=== PATIENT | male | born 2000 | race Caucasian/White ===

== ENCOUNTER 2023-07-11 23:10 | Inpatient (IN) ==
[2023-07-11] MEDS ORDERED: SODIUM CHLORIDE 0.9% 1,000 ML IV STA (23:42)
[2023-07-12 00:30] LABS: Influenza A virus by PCR Negative (Neg); Influenza B virus by PCR Negative (Neg); RSV by PCR Negative (Neg); SARS CoV2 RNA(COVID-19) Ceph NEGATIVE (Negative)
[2023-07-12] MEDS ORDERED: ONDANSETRON INJ 2 MG/ML 2 ML VIAL IV STA (00:45)
--- NOTE | 2023-07-12 00:56 | Emergency Department Note ---
Impression & Plan DKA (diabetic ketoacidosis), High anion gap metabolic acidosis, Hypovolemia ED Provider Note CHIEF COMPLAINT: Nausea and vomiting x 1 day HISTORY OF PRESENT ILLNESS: This 23-year-old male patient presents to the emergency department via private vehicle accompanied by friend for evaluation of nausea and vomiting which started earlier today. The patient states he woke not feeling well. He states he had several episodes of vomiting throughout the day. He was seen at [facility] and was given a prescription for Zofran. He states he has taken 2 doses throughout the day without significant improvement or resolution. The patient states that he had an additional episode of vomiting this evening and called his friend to bring him to the emergency department. The patient denies any fever or chills. He denies any recent illness such as cough, congestion, runny nose, sore throat. The patient denies any diarrhea or constipation. He has been unable to keep down any food or fluids throughout the day today. The patient does admit to intermittent marijuana use. He states that he has been feeling nauseated for about a week. He does also note that he started Adderall about 2 to 3 weeks ago. He states that he has not had any vomiting until tonight. Pt. reports a 10 pound weight loss in the past 2-3 days. REVIEW OF SYSTEMS: A 10 system review of systems was performed with positives and pertinent negatives listed in the history of present illness. All other systems were reviewed and are negative. ALLERGIES: NKDA PHYSICAL EXAM: VITALS: Vitals are noted on the nurse's note and reviewed by myself. Patient is tachycardic. Heart rate 144. GENERAL: This is a 23 year old male, in no acute distress, nondiaphoretic, well- developed well-nourished. SKIN: The skin was without rashes, erythema, edema, or bruising. There is no tenting of the skin. Capillary refill less than 2 seconds. HEAD: Normocephalic atraumatic. EYES: Conjunctivae without injection, sclerae without icterus. NOSE: Patent, turbinates without inflammation or discharge. No sinus tenderness. MOUTH: Mucous membranes moist. Tonsils are not enlarged. Pharynx without erythema or exudate. Uvula midline. Airway patent. Tongue does not deviate. NECK: Supple without nuchal rigidity. No lymphadenopathy. Cervical spine is nontender. No JVD. HEART: Regular rate and rhythm without murmurs gallops or rubs. LUNGS: Clear to auscultation bilaterally without wheezes, rales or rhonchi. No retractions or accessory muscle use. ABDOMEN: Positive bowel sounds x 4. Soft, nontender, without masses or organomegaly. Nina sign negative. No guarding or rebound tenderness. MUSCULOSKELETAL: No muscle atrophy, erythema, or edema noted. Full range of motion without joint tenderness in all extremities. No tenderness to palpation. Normal gait. Strength 5/5 throughout. NEURO: Patient was alert and oriented to person place and time. No focal neurological deficits. An order was placed for continuous phototypesetting equipment monitor. The monitor showed a normal sinus rhythm at a ventricular rate of 94 bpm, per my interpretation. EMERGENCY DEPARTMENT COURSE: The patient was seen and evaluated as above. IV access was obtained, labs were drawn. Patient was hydrated with IV fluids and medicated with Zofran. Labs reviewed. Labs are concerning for leukocytosis of 13,000. No anemia or thrombocytopenia. Patient did appear to be acidotic. CO2 was 9. Anion gap was 31. Blood glucose was elevated at 369. Hepatic function without significant abnormality. Lipase 14. Urinalysis positive for protein, glucose, ketones, and blood. COVID-19, influenza, RSV testing were negative. I discussed findings with the patient at bedside. The patient was unaware of a diabetes diagnosis. He denies any history of elevated blood sugar. I am concerned for new onset diabetes with DKA as the cause of the patient's nausea and vomiting. Patient was given additional liter of IV fluids. Additional labs were ordered. I discussed the case with Dr. Varela, [facility] hospitalist physician. He did agree to see and evaluate the patient for admission. Please see hospitalist and ICU dictation regarding ongoing management care of this patient. While in the department, I personally reevaluated the patient several times and each time the patient was found to be resting comfortably. The patient was educated upon management, educated upon todays findings/results, educated upon importance of follow up from today's visit, educated upon symptoms in which to return, had questions answered prior to discharge, verbalized understanding, and was discharged home in good condition. I have personally spent greater than 43minutes of critical care time in the direct management of this patient to assess and manage DKA. This includes bedside care, interpretation of diagnostic studies, and testing, discussion with consultants, patient, and family members, documentation time, and other required patient management activities. This 35 minutes is in excess of all separately billable procedures. Case was discussed with the attending physician. This visit is during a period of high volume and high acuity in the emergency department. I attest that I have personally reviewed the patient medication list. I attest that I have reviewed the patient's blood pressure and it was found to be normotensive. In the evaluation and treatment of this patient the following differential diagnoses were entertained: Gastroenteritis, food borne illness, infections, appendicitis, diverticulitis, inflammatory bowel disease, obstruction, GI bleed, biliary pathology, volvulus, electrolyte abnormality, metabolic abnormality, as well as other pathologies. The chart was completed utilizing [employer] Speech voice recognition software. Grammatical errors, random word insertions, pronoun errors, and incomplete sentences are an occasional consequence of this system due to software limitations, ambient noise, and hardware issues. Any formal questions or concerns about the content, text, or information contained within the body of this dictation should be directly addressed to the provider for clarification. Past Med/Surg History Medical History No pertinent past medical history Social History Smoking Status: Former smoker Do You Dip or Chew Tobacco: No; Hx Alcohol Use: Yes Alcohol type: beer Hx Substance Use: Yes Last Used Substance: Days (ago) Preferred Language: Croatian Communication Ability: Effective Loom Technician Required: No Beliefs That Will Affect Care: None Current Living Situation: Alone Other Information That Helps Us Care for You: No Feels Safe at Home: Yes Safety Concerns: Feels Safe At This Time Assistive Devices: None Allergies Allergies Allergy/AdvReac Type Severity Reaction Status Date / Time amoxicillin AdvReac Unknown Gastrointestinal Verified 07/12/23 02:32 Upset Home Meds Home Medications Medication Instructions Recorded Confirmed dextroamphetamine-amphetamine 10 10 mg PO DAILY 07/12/23 07/12/23 mg tablet (Adderall) fluticasone propionate 50 1 spray intranasal DAILY 07/12/23 07/12/23 mcg/actuation nasal spray,suspension Results & Data (ED) Vital Signs Vital Signs - 24 hr 07/11/23 23:40 07/12/23 02:33 07/12/23 02:36 Temperature 36.7 C Temperature Source Temporal Artery Scan Pulse Rate 144 H 107 H Pulse Rate [Apical] 112 H Respiratory Rate 20 16 Blood Pressure [Right Arm] 126/94 Blood Pressure Mean [Right Arm] 104 Pulse Oximetry 99 98 Oxygen Delivery Method Room Air Room Air Sepsis Recent Fever Within 48 Hours No Sepsis New/Unexplained Change in Mental Status No Sepsis Action Taken by Nursing No Action Required Laboratory Data 07/12/23 01:03 07/12/23 03:34 Lab Results 07/11/23 07/12/23 07/12/23 Range/Units 22:40 01:03 01:20 WBC 13.32 H (4.8-10.8) K/ul RBC 6.05 (4.70-6.10) M/uL Hgb 18.0 (14.0-18.0) g/dl Hct 54.1 H (42.0-52.0) % MCV 89.4 (80.0-100.0) fL MCH 29.8 (25.0-34.0) pg MCHC 33.3 (32.0-36.0) g/dL RDW Std Deviation 43.8 (36.4-46.3) fL RDW Coeff of Kalpana 14.2 (11.5-14.5) % Plt Count 321 (130-400) K/uL MPV 9.8 (9.4-12.4) fL Immature Gran % (Auto) 0.9 % Neut % (Auto) 82.7 % Lymph % (Auto) 9.5 % [place] % (Auto) 6.5 % Eos % (Auto) 0.0 % Baso % (Auto) 0.4 % Neut # (Auto) 11.03 H (1.40-6.50) K/uL Lymph # (Auto) 1.26 (1.20-3.40) K/uL [place] # (Auto) 0.86 H (0.11-0.59) K/uL Eos # (Auto) 0.00 (0.00-0.50) K/uL Baso # (Auto) 0.05 (0.00-0.20) K/uL Immature Gran # (Auto) 0.12 (0.01-0.20) K/uL Sodium 140 (136-145) mmol/L Potassium 4.4 (3.5-5.1) mmol/L Chloride 100 (98-107) mmol/L Carbon Dioxide 9 L* (21-32) mmol/L Anion Gap 31 H (3-11) BUN 12 (6-23) mg/dl Creatinine 1.38 (0.6-1.4) mg/dl Est Cr Clr Drug Dosing 60.8 ml/min Est GFR ( Amer) 84.1 ml/min Est GFR (Non-Af Amer) 72.6 ml/min BUN/Creatinine Ratio 8.7 L (10-20) Glucose 369 H* (70-99(Fasting)) mg/dl POC Glucose (70-99) mg/dl Osmolality 330 H (280-300) mOsm/kg Calcium 10.1 (8.6-10.3) mg/dl Phosphorus 5.8 H (2.5-4.9) mg/dl Magnesium 2.4 (1.7-2.4) mg/dl Total Bilirubin 0.4 (0.2-1.0) mg/dl AST 12 L (13-39) U/L ALT 16 (7-52) U/L Alkaline Phosphatase 134 H (34-104) U/L Total Protein 9.2 H (6.0-8.3) gm/dl Albumin 5.7 H (3.4-5.0) gm/dl Globulin 3.5 (2.5-4.0) gm/dl Albumin/Globulin Ratio 1.6 (0.9-2) Lipase 14 (11-82) U/L Urine Color Yellow Urine Appearance Clear (Clear) Urine pH 5.5 (4.5-7.5) Ur Specific [place] 1.034 H (1.000-1.030) Urine Protein 3+ H (Negative) Urine Glucose (UA) 3+ H (Negative) Urine Ketones 4+ H (Negative) Urine Blood 2+ H (Negative) Urine Nitrite Negative (Negative) Urine Bilirubin Negative (Negative) Urine Urobilinogen Negative (Negative) Ur Leukocyte Esterase Negative (Negative) Urine WBC (Auto) 1-5 (0-5) /hpf Urine RBC (Auto) 0-4 (0-4) /hpf U Hyaline Cast (Auto) 10-30 H (0-5) /lpf U Epithel Cells (Auto) 10-20 H (0-5) /lpf Urine Bacteria (Auto) Negative (Negative) Urine Osmolality 853 H (500-800) mOsm/kg Urine Opiates Screen Neg (Neg) Ur Methadone, Qual Neg (Neg) Urine Barbiturates Neg (Neg) Ur Phencyclidine (PCP) Neg (Neg) U Amphetamin/Meth Scrn Neg (Neg) MDMA (Ecstasy) Screen Neg (Neg) U Benzodiazepines Scrn Neg (Neg) Ur Cocaine Metabolite Neg (Neg) U Marijuana (THC) Screen Pos H (Neg) SARS-CoV-2 (PCR) NEGATIVE (Negative) Influenza Type A (PCR) Negative (Neg) Influenza Type B (PCR) Negative (Neg) RSV (RT-PCR) Negative (Neg) 07/12/23 Range/Units 02:23 WBC (4.8-10.8) K/ul RBC (4.70-6.10) M/uL Hgb (14.0-18.0) g/dl Hct (42.0-52.0) % MCV (80.0-100.0) fL MCH (25.0-34.0) pg MCHC (32.0-36.0) g/dL RDW Std Deviation (36.4-46.3) fL RDW Coeff of Kalpana (11.5-14.5) % Plt Count (130-400) K/uL MPV (9.4-12.4) fL Immature Gran % (Auto) % Neut % (Auto) % Lymph % (Auto) % [place] % (Auto) % Eos % (Auto) % Baso % (Auto) % Neut # (Auto) (1.40-6.50) K/uL Lymph # (Auto) (1.20-3.40) K/uL [place] # (Auto) (0.11-0.59) K/uL Eos # (Auto) (0.00-0.50) K/uL Baso # (Auto) (0.00-0.20) K/uL Immature Gran # (Auto) (0.01-0.20) K/uL Sodium (136-145) mmol/L Potassium (3.5-5.1) mmol/L Chloride (98-107) mmol/L Carbon Dioxide (21-32) mmol/L Anion Gap (3-11) BUN (6-23) mg/dl Creatinine (0.6-1.4) mg/dl Est Cr Clr Drug Dosing ml/min Est GFR ( Amer) ml/min Est GFR (Non-Af Amer) ml/min BUN/Creatinine Ratio (10-20) Glucose (70-99(Fasting)) mg/dl POC Glucose 323 H* (70-99) mg/dl Osmolality (280-300) mOsm/kg Calcium (8.6-10.3) mg/dl Phosphorus (2.5-4.9) mg/dl Magnesium (1.7-2.4) mg/dl Total Bilirubin (0.2-1.0) mg/dl AST (13-39) U/L ALT (7-52) U/L Alkaline Phosphatase (34-104) U/L Total Protein (6.0-8.3) gm/dl Albumin (3.4-5.0) gm/dl Globulin (2.5-4.0) gm/dl Albumin/Globulin Ratio (0.9-2) Lipase (11-82) U/L Urine Color Urine Appearance (Clear) Urine pH (4.5-7.5) Ur Specific [place] (1.000-1.030) Urine Protein (Negative) Urine Glucose (UA) (Negative) Urine Ketones (Negative) Urine Blood (Negative) Urine Nitrite (Negative) Urine Bilirubin (Negative) Urine Urobilinogen (Negative) Ur Leukocyte Esterase (Negative) Urine WBC (Auto) (0-5) /hpf Urine RBC (Auto) (0-4) /hpf U Hyaline Cast (Auto) (0-5) /lpf U Epithel Cells (Auto) (0-5) /lpf Urine Bacteria (Auto) (Negative) Urine Osmolality (500-800) mOsm/kg Urine Opiates Screen (Neg) Ur Methadone, Qual (Neg) Urine Barbiturates (Neg) Ur Phencyclidine (PCP) (Neg) U Amphetamin/Meth Scrn (Neg) MDMA (Ecstasy) Screen (Neg) U Benzodiazepines Scrn (Neg) Ur Cocaine Metabolite (Neg) U Marijuana (THC) Screen (Neg) SARS-CoV-2 (PCR) (Negative) Influenza Type A (PCR) (Neg) Influenza Type B (PCR) (Neg) RSV (RT-PCR) (Neg) Administered Medications Insulin Human Regular 250 (units/ Sodium Chloride) 250 mls @ 1.25 mls/hr IV .Q24H MANDI; Protocol Stop: 08/11/23 02:14 Last Titration: 07/12/23 06:06 Dose: 1.25 units/hr, 1.3 mls/hr Documented By: SOLANGE Co-signed By: MNRenée Titration: 07/12/23 05:00 Dose: 1.25 units/hr, 1.3 mls/hr Documented By: SOLANGE Co-signed By: MNM Titration: 07/12/23 04:25 Dose: 0 units/hr, 0 mls/hr Documented By: SOLANGE Co-signed By: MNM Titration: 07/12/23 03:33 Dose: 5.1 units/hr, 5.1 mls/hr Documented By: MED Co-signed By: SARAH Admin: 07/12/23 02:45 Dose: 5.1 units/hr, 5.1 mls/hr Documented By: BILLIE Co-signed By: JINA Potassium Chloride 20 meq/ (Dextrose/Lactated Ringer's) 1,010 mls @ 175 mls/hr IV .Q5H47M MANDI Stop: 08/11/23 04:29 Last Admin: 07/12/23 04:36 Dose: 175 mls/hr Documented By: SOLANGE Discontinued Medications Sodium Chloride (Nss) 1,000 mls @ 999 mls/hr IV .Q1H1M STA Stop: 07/12/23 00:42 Last Infusion: 07/12/23 02:00 Dose: Infused Documented By: Admin: 07/12/23 00:59 Dose: 999 mls/hr Documented By: LAUREEN Sodium Chloride (Nss) 1,000 mls @ 999 mls/hr IV .Q1H1M ONE Stop: 07/12/23 03:02 Last Infusion: 07/12/23 05:00 Dose: Infused Documented By: Admin: 07/12/23 02:37 Dose: 999 mls/hr Documented By: BILLIE Potassium Chloride/Sodium Chloride (Normal Saline W/20 Meq Kcl) 20 meq in 1,000 mls @ 250 mls/hr IV .Q4H MANDI; Protocol Stop: 08/11/23 03:14 Last Infusion: 07/12/23 04:42 Dose: Infused Documented By: Admin: 07/12/23 03:40 Dose: 250 mls/hr Documented By: YUMIKO Parenteral Electrolytes (Plasma-Lyte A Ph 7.4) 1,000 mls @ 999 mls/hr IV .Q1H1M ONE Stop: 07/12/23 05:09 Last Infusion: 07/12/23 05:23 Dose: Infused Documented By: Admin: 07/12/23 04:19 Dose: 999 mls/hr Documented By: SOLANGE Insulin Human Regular (Novolin-R Bolus From Bag) 5.1 units IV ONE ONE Stop: 07/12/23 02:31 Last Admin: 07/12/23 02:46 Dose: 5.1 units Documented By: BILLIE Co-signed By: JINA Miscellaneous Information (Patient's Allergy Info Needs Entered) 1 each N/A Q30M MANDI Stop: 08/10/23 23:39 Last Admin: 07/12/23 05:53 Dose: Not Given Documented By: Admin: 07/12/23 05:52 Dose: Not Given Documented By: Admin: 07/12/23 05:23 Dose: Not Given Documented By: Admin: 07/12/23 05:00 Dose: Not Given Documented By: Admin: 07/12/23 03:11 Dose: 1 each Documented By: NURIS Ondansetron HCl (Ondansetron Inj 2 Mg/Ml 2 Ml Vial) 4 mg IV NOW STA Stop: 07/12/23 00:46 Last Admin: 07/12/23 00:59 Dose: 4 mg Documented By: LAUREEN Potassium Chloride (Potassium Chloride 20 Meq/15 Ml Udc) 60 meq PO NOW STA Stop: 07/12/23 04:25 Last Admin: 07/12/23 04:36 Dose: 60 meq Documented By: SOLANGE Discharge Plan Visit Data Chief Complaint: Vomiting Stated Complaint: VOMITING/7 TIMES TODAY ED Provider: Triston Serna ED Midlevel Provider: Jossie Dickerson Discharge Problem: DKA (diabetic ketoacidosis), High anion gap metabolic acidosis, Hypovolemia Patient Disposition: Admitted As Inpatient Discharge Instructions Interventions: ED Discharge Assessment Last Done: 07/12/23 03:44
[2023-07-12 01:38] LABS: Basophils # (auto) 0.05 K/uL (0.00-0.20); Basophils % (auto) 0.4 %; Hematocrit (blood only) 54.1 % (42.0-52.0); Immature Granulocytes # (auto) 0.12 K/uL (0.01-0.20); Immature Granulocytes % (auto) 0.9 %; Lymphocytes # (auto) 1.26 K/uL (1.20-3.40); Lymphocytes % (auto) 9.5 %; Mean Corpuscular Hemoglobin 29.8 pg (25.0-34.0); Mean Corpuscular Hgb Conc 33.3 g/dL (32.0-36.0); Mean Corpuscular Volume 89.4 fL (80.0-100.0); Mean Platelet Volume 9.8 fL (9.4-12.4); Monocytes # (auto) 0.86 K/uL (0.11-0.59); Monocytes % (auto) 6.5 %; Neutrophils # (auto) 11.03 K/uL (1.40-6.50); Neutrophils % (auto) 82.7 %; Platelet Count 321 K/uL (130-400); RDW Coefficient of Variation 14.2 % (11.5-14.5); RDW Standard Deviation 43.8 fL (36.4-46.3); Red Blood Count 6.05 M/uL (4.70-6.10); White Blood Count 13.32 K/ul (4.8-10.8)
[2023-07-12 01:39] LABS: Appearance Urine Clear (Clear); Bacteria Urine Automated Negative (Negative); Bilirubin Urine Negative (Negative); Blood Urine 2+ (Negative); Color Urine Yellow; Glucose Urine UA 3+ (Negative); Ketones Urine 4+ (Negative); Leukocyte Esterase Urine Negative (Negative); Nitrite Urine Negative (Negative); Protein Urine 3+ (Negative); RBC Urine Automated 0-4 /hpf (0-4); Specific Gravity Urine 1.034 (1.000-1.030); Urobilinogen Urine Negative (Negative); pH Urine 5.5 (4.5-7.5)
[2023-07-12 01:53] LABS: Albumin Globulin Ratio 1.6 (0.9-2); Albumin Level 5.7 gm/dl (3.4-5.0); BUN Creatinine Ratio 8.7 (10-20); Bilirubin,Total 0.4 mg/dl (0.2-1.0); Calcium 10.1 mg/dl (8.6-10.3); Creatinine Clr Calc Pharmacy 60.8 ml/min; Est GFR (African American) 84.1 ml/min; Est GFR (Non-African American) 72.6 ml/min; Globulin 3.5 gm/dl (2.5-4.0); Potassium 4.4 mmol/L (3.5-5.1); Total Protein 9.2 gm/dl (6.0-8.3)
[2023-07-12] MEDS ORDERED: SODIUM CHLORIDE 0.9% 1,000 ML IV ONE (02:02)
[2023-07-12] MEDS ORDERED: STAT IV Infusion **Titration per Protocol STA (02:11)
[2023-07-12] MEDS ORDERED: GLUCOSE 40% GEL 15 GM TUBE PO PRN (02:11)
[2023-07-12] MEDS ORDERED: GLUCAGON FOR INJ 1 MG VIAL SQ PRN (02:11)
[2023-07-12] MEDS ORDERED: DEXTROSE 50% 50 ML SYRINGE IV PRN (02:11)
[2023-07-12] MEDS ORDERED: GLUCOSE 10 TAB/TUBE PO PRN (02:11)
[2023-07-12] MEDS ORDERED: CARBOHYDRATES FOR HYPOGLYCEMIA PO PRN (02:11)
[2023-07-12] MEDS ORDERED: INSULIN REGULAR 250 UNITS in SODIUM CHLORIDE 0.9% 247.5 ML IV SCH (02:15)
--- NOTE | 2023-07-12 02:28 | History & Physical Report ---
Date of Service July 12, 2023 Assessment & Plan (1) DKA (diabetic ketoacidosis): Plan: Pt is a 23 yo male with no significant PMH presenting to the ER d/t nausea/vomiting and abdominal pain. DKA - hemodynamically stable upon admission except tachycardic - lab work significant for WBC 13.32, bicarb 9, AG 31, blood sugar 369 - UA showed 4+ ketones, 2+ blood, and 3+ glucose - s/p 2L NS bolus in ER; continue fluids with 1/2NS w/ 20 meq K at rate of 250 mL/hr - continue insulin drip upon admission - trend BMP, Mg, phos, VBG q4hr until DKA resolves (gap closes and bicarb >18); transition to subQ insulin when able - further management per ICU New onset type 1 DM - A1c pending - current management as above - pt would benefit from close outpatient f/u with PCP and/or establishment with endocrinology upon discharge - pt's PCP is in [place] and affiliated with [facility] Diet: NPO VTE ppx: deferred, low risk Code: full Dispo: admit to ICU History of Present Illness Chief Complaint: new onset DM, DKA Primary Care Provider: [facility] Pt is a 23 yo male with no significant PMH presenting to the ER d/t nausea/vomiting and abdominal pain. Pt explains that he has been feeling unwell over the last week or so. He has also noticed that his mouth/lips have been very dry, but he attributed this to sleeping with his mouth open. Pt began vomiting this morning. He vomited multiple times throughout the day which led him to seek care at [facility] [[email or web address] He was prescribed zofran PRN for nausea/vomiting and was told to go to the ER if he vomited again. He took a zofran and felt good for about 6 hrs and vomited again which prompted him to come to the ER. His friend notes that he was feeling SOB/breathing funny earlier when he was walking to and from the bathroom. He has no family hx of type 1 DM. His maternal GF had type 2 DM. He did recently start taking adderall PRN. He also uses flonase. No other daily medications. In the ER, pt received 2L NS, zofran 4 mg, and a bolus of insulin. He was started on an insulin drip. Allergies Allergy/AdvReac Type Severity Reaction Status Date / Time amoxicillin AdvReac Unknown Gastrointestinal Verified 07/12/23 02:32 Upset Home Medications Medication Instructions Recorded Confirmed Type blood sugar diagnostic (OneTouch #100 ea 07/12/23 Rx Verio test strips) dextroamphetamine-amphetamine 10 10 mg PO DAILY 07/12/23 07/12/23 History mg tablet (Adderall) fluticasone propionate 50 1 spray intranasal DAILY 07/12/23 07/12/23 History mcg/actuation nasal spray,suspension insulin lispro 100 unit/mL 1 sliding scale dose subcut 07/12/23 Rx subcutaneous pen (Humalog KwikPen USEASDIRECTD #15 mL (U-100) Insulin) lancets 33 gauge (OneTouch Delica #100 ea 07/12/23 Rx Plus Lancet) pen needle, diabetic 32 gauge x #100 ea 07/12/23 Rx /32" (BD Sary 2nd Gen Pen Needle) Past Med/Surg History Medical History No pertinent past medical history Social History Smoking Status: Former smoker Do You Dip or Chew Tobacco: No; Hx Alcohol Use: Yes Alcohol type: beer Hx Substance Use: Yes Last Used Substance: Days (ago) Preferred Language: Mauritanian Communication Ability: Effective Patient Experience Coordinator Required: No Beliefs That Will Affect Care: None Current Living Situation: Alone Other Information That Helps Us Care for You: No Feels Safe at Home: Yes Safety Concerns: Feels Safe At This Time Assistive Devices: None Review of Systems Review of Systems: As per HPI Physical Exam Physical Exam: Constitutional: ill appearing, no acute distress HEENT: normocephalic, no conjunctival injection CV: RRR, no murmur, no LE edema Respiratory: CTA bilaterally. No rhonchi, wheezes, or crackles. No increased work of breathing GI: soft, nondistended, nontender, + bowel sounds MSK: no gross deformities noted Skin: warm, dry, no rashes Neuro: alert, oriented, no FND noted Psych: mood and affect congruent Results & Data Results & Data Vital Signs (Past 12 Hours) Vital Signs Temp Pulse Resp Pulse Ox O2 Del Method 07/11/23 23:40 36.7 C 144 H 20 99 Room Air Supervising Physician Co-Signing Physician Notes Attending addendum: I have physically seen this patient, have supervised the medical residents activities, and agree with the H&P unless as otherwise noted. Assessment and Plan: DKA/new onset diabetes mellitus type 1- Admit to the ICU Anion gap 31, bicarbonate 9, creatinine 1.38, glucose 321 Status post 2 L normal saline in the ED Changing IV fluids per protocol to include adding D5 and potassium Insulin drip per protocol BMP/magnesium/phosphorus/VBG every 4 hours Consult search manager for further management New onset diabetes mellitus type 1- Diabetic education prior to leaving hospital Resident Activity Tracking Resident Involvement: Resident Care Provided Care Provided: Adult Hospital Medicine
[2023-07-12] MEDS ORDERED: NovoLIN-R BOLUS FROM BAG IV ONE (02:30)
[2023-07-12] MEDS ORDERED: ACETAMINOPHEN 325 MG TAB PO PRN (03:01)
[2023-07-12] MEDS ORDERED: MELATONIN 3 MG TAB PO PRN (03:01)
[2023-07-12] MEDS ORDERED: ONDANSETRON INJ 2 MG/ML 2 ML VIAL IV PRN (03:01)
[2023-07-12] MEDS ORDERED: DKA GOAL RANGE 150-250 mg/dl ONE (03:06)
[2023-07-12] MEDS: Patient's ALLERGY Info needs ENTERED SCH ×7 (03:11→13:34)
[2023-07-12] MEDS ORDERED: NSS + 20MEQ KCL 20 MEQ/1,000 ML BAG IV SCH (03:15)
[2023-07-12 03:16] LABS: Magnesium 2.4 mg/dl (1.7-2.4); Phosphorus 5.8 mg/dl (2.5-4.9)
--- NOTE | 2023-07-12 03:19 | Critical Care Consultation ---
Date of Consultation July 12, 2023 Assessment & Plan (1) DKA (diabetic ketoacidosis): (2) Hypovolemia: (3) High anion gap metabolic acidosis: (4) ADD (attention deficit disorder): Plan Reason Critically Ill: Patient presents with High Anion Gap Metabolic Acidosis and elevated glucose. Working Diagnosis of new onset DM with DKA. Neuro - ADD CAM ICU: NEGATVIE - Continue Adderall - Monitor neurological exams Cardiac - Hypovolemia - hypovolemia secondary to likely osmotic diuresis secondary to elevated glucose - Replete volume - Allow pateint to drink water to assist with re-hydration Respiratory - No acute needs - Compensatory tachpnea present- should improve with correction of acid/base disturbance GI - Vomitting - Likely secondary to DKA - denies any other ingestion but occasional marijuana use RENAL/LYTES - High Anion Gap Metabolic Acidosis, DKA - Continue with volume, insulin and electrolyte replacment per protocl - Tox screen pending - serum and urine osmo pending - Has only voided small amount since 1130 AM - No acute needs ENDO - DKA, likely new onset DM - Patient thin, with increase in food intake last week, increase in thirst for a week and urniation- progression to nausea and vomiting for past 2 days - DKA protocol- Add Dextrose to fluids once < 250- D5LR - Replete potassium HEME -Leukocytosis - no obvious signs of infection - likely reactionary and hypovolemic ID - As above no concerns for infective process at this time LINES/IV ACCESS - PIV Continue use of these lines DVT PROPHYLAXIS - SCDs, ambulation DISPO: ICU until gap is closed and HCO3 ~18, and glucose stabilized Supervising Physician Co-Signing Physician Notes I saw and evaluated the patient with ELSA Vyas, and agree with findings and plan as documented in the note. 23-year-old male past medical history of ADD presented to hospital complaint of generalized lethargy Was found to be in DKA Patient's father was in the room at time of examination There is no family history of diabetes on paternal side. One of the aunts on maternal side has diabetes Patient has been having issues with thirst, polyuria since last couple of weeks. He says he is feeling much better since coming to the hospital No abdominal pain right now, no nausea vomiting Is hungry and would like To have something to eat. No dysuria prior to coming to the hospital Constitutional: No acute distress HEENT: EOMI, PERRLA Respiratory system: Good air entry bilaterally, no wheeze, no rhonchi, no crackles CVS: S1-S2 positive, no murmurs or gallops Abdomen: Soft, nontender, nondistended, positive bowel sounds x4 Extremities: +2 pulses bilaterally radialis/ dorsalis pedis, no cyanosis, no edema Neuro: Awake alert oriented x3 Psych: Normal mood and affect G/U: No Renae --Prophylaxis VTE: None GI: None Lines: Peripheral Diet: N.p.o. Plan: In/out: Positive 4 liters since coming to the hospital. Electrolytes are improving. Phosphorus being replaced Will get diabetic education. HbA1c is 11.5. Decrease IV fluid rate to 125 mill an hour. All questions inquiries of the patient as well as patient's father were answered in depth I have personally spent 53 minutes of critical care time in the direct m anagement of this patient. This is a life/limb threatening event. This includes time spent evaluating patient, direct bedside care, chart review, placing orders, interpretation of diagnostic studies, discussion with consultants, patient, and family members, as well as other required patient management activities. This time is exclusive of all separately billable procedures, and teaching time and separate from and in addition to any other critical care service time. Please note the above document was generated using voice recognition software. It may contain grammatical, syntax or spelling errors. Chest x-ray from today does not show any significant abnormality History of Present Illness Reason for Consultation: DKA Requesting Physician: Christopher Varela MD Attending Physician: Christopher Varela MD History of Present Illness 23 YOM with 2 week history of feeling nauseated and 2 day history of vomiting, decrease oral intake. He came to the EMD secondary to vomiting, fatigue and heavy breathing. Was found to be tachycardic on arrival to the 140s. Routine labs were sent which returned with a HCO3 of 9, Gap of 30, Glucose of 369, specific gravity of 1.034 and ketones in urine of 4+. In the EMD the patient received 2 liters of crystalloid, and initiated on an insulin drip at 5 units per hour (0.1unit/kg/hr). Patient states that he has been feeling generally well prior to this, has not had this happen prior and no history of family history of DM. Patient appears to remain very dehydrated, drinking water in between breaths and remains with very dry mucous membranes and tongue. Will admit to ICU for insulin drip, continued monitoring of PH and electrolytes. Will provide crystalloids as well as allowing patient to drink water to assist with rehydration. CODE: FULL Allergies Allergy/AdvReac Type Severity Reaction Status Date / Time amoxicillin AdvReac Unknown Gastrointestinal Verified 07/12/23 02:32 Upset Home Medications Medication Instructions Recorded Confirmed Type dextroamphetamine-amphetamine 10 10 mg PO DAILY 07/12/23 07/12/23 History mg tablet (Adderall) fluticasone propionate 50 1 spray intranasal DAILY 07/12/23 07/12/23 History mcg/actuation nasal spray,suspension Patient History Medical History No pertinent past medical history Social History Smoking Status: Former smoker Do You Dip or Chew Tobacco: No; Hx Alcohol Use: Yes Alcohol type: beer Hx Substance Use: Yes Last Used Substance: Days (ago) Preferred Language: [place] Communication Ability: Effective Quill Cleaner Required: No Beliefs That Will Affect Care: None Current Living Situation: Alone Other Information That Helps Us Care for You: No Feels Safe at Home: Yes Safety Concerns: Feels Safe At This Time Assistive Devices: None Review of Systems Review of Systems: REVIEW OF SYSTEMS: Constitutional: No fever, sweats or chills Eyes: No diplopia, no worsening or blurred vision ENT: normal hearing, no trouble swallowing Respiratory: (+) increase dyspnea, No cough, sputum, dyspnea at rest or on exertion Cardiovascular: No chest pain, tightness or palpitations Abdomen: (+) nausea, vomitting, No diarrhea or constipation Musculoskeletal: No joint pain, calf pain, swelling Neurologic: No weakness, numbness/tingling, or balance problems Psychiatric: (+) ADD and anxiety Skin: No rash or itch Physical Exam Physical Exam: PHYSICAL EXAM: General: awake, alert, fatigued appearing Head: Normocephalic, atraumatic ENT: PERRLA, EOMI, no pharyngeal exudate, mucous membranes dry Neuro: AAO x 3, speech clear and appropriate, strength intact bilaterally 5/5, sensation intact and equal all extremities and dermatomes, no pronator drift Chest: equal rise and fall of the chest, no accessory muscle use, no heaves or thrills, Clear to auscultation, on room air, Cardiac: Regular rate and rhythm, telemetry reviewed- NSR, skin warm dry, cap refill <3 seconds, peripheral pulses +2 no JVD, no murmur, no edema GI: NABS x 4 quadrants, soft, nontender to palpation, no rebound, guarding or tenderness : Spontaneously voiding, no pain, no CVA tenderness, Extremities: Normal inspection, no peripheral edema or erythema, calfs n ontender to palpation Psych: Normal mood and affect Skin: no rash or erythema Results & Data Results & Data Vital Signs (Past 12 Hours) Vital Signs Temp Pulse Pulse Resp BP Pulse Ox O2 Del Method 07/12/23 02:36 107 H 07/12/23 02:33 112 H 16 126/94 98 Room Air 07/11/23 23:40 36.7 C 144 H 20 99 Room Air Laboratory Results Abnormal lab results 07/12/23 07/12/23 07/12/23 Range/Units 01:03 01:20 02:23 WBC 13.32 H (4.8-10.8) K/ul Hct 54.1 H (42.0-52.0) % Neut # (Auto) 11.03 H (1.40-6.50) K/uL [place] # (Auto) 0.86 H (0.11-0.59) K/uL Carbon Dioxide 9 L* (21-32) mmol/L Anion Gap 31 H (3-11) BUN/Creatinine Ratio 8.7 L (10-20) Glucose 369 H* (70-99(Fasting)) mg/dl POC Glucose 323 H* (70-99) mg/dl Phosphorus 5.8 H (2.5-4.9) mg/dl AST 12 L (13-39) U/L Alkaline Phosphatase 134 H (34-104) U/L Total Protein 9.2 H (6.0-8.3) gm/dl Albumin 5.7 H (3.4-5.0) gm/dl Ur Specific [place] 1.034 H (1.000-1.030) Urine Protein 3+ H (Negative) Urine Glucose (UA) 3+ H (Negative) Urine Ketones 4+ H (Negative) Urine Blood 2+ H (Negative) U Hyaline Cast (Auto) 10-30 H (0-5) /lpf U Epithel Cells (Auto) 10-20 H (0-5) /lpf 07/12/23 Range/Units 03:25 WBC (4.8-10.8) K/ul Hct (42.0-52.0) % Neut # (Auto) (1.40-6.50) K/uL [place] # (Auto) (0.11-0.59) K/uL Carbon Dioxide (21-32) mmol/L Anion Gap (3-11) BUN/Creatinine Ratio (10-20) Glucose (70-99(Fasting)) mg/dl POC Glucose 285 H (70-99) mg/dl Phosphorus (2.5-4.9) mg/dl AST (13-39) U/L Alkaline Phosphatase (34-104) U/L Total Protein (6.0-8.3) gm/dl Albumin (3.4-5.0) gm/dl Ur Specific [place] (1.000-1.030) Urine Protein (Negative) Urine Glucose (UA) (Negative) Urine Ketones (Negative) Urine Blood (Negative) U Hyaline Cast (Auto) (0-5) /lpf U Epithel Cells (Auto) (0-5) /lpf Medications Administered Insulin Human Regular 250 (units/ Sodium Chloride) 250 mls @ 5.1 mls/hr IV .Q24H MANDI; Protocol Stop: 08/11/23 02:14 Last Titration: 07/12/23 03:33 Dose: 5.1 units/hr, 5.1 mls/hr Documented By: UNRIS Co-signed By: CHADP Admin: 07/12/23 02:45 Dose: 5.1 units/hr, 5.1 mls/hr Documented By: BILLIE Co-signed By: JINA Potassium Chloride/Sodium Chloride (Normal Saline W/20 Meq Kcl) 20 meq in 1,000 mls @ 250 mls/hr IV .Q4H MANDI; Protocol Stop: 08/11/23 03:14 Last Admin: 07/12/23 03:40 Dose: 250 mls/hr Documented By: SM Discontinued Medications Sodium Chloride (Nss) 1,000 mls @ 999 mls/hr IV .Q1H1M STA Stop: 07/12/23 00:42 Last Infusion: 07/12/23 02:00 Dose: Infused Documented By: Admin: 07/12/23 00:59 Dose: 999 mls/hr Documented By: LAUREEN Sodium Chloride (Nss) 1,000 mls @ 999 mls/hr IV .Q1H1M ONE Stop: 07/12/23 03:02 Last Admin: 07/12/23 02:37 Dose: 999 mls/hr Documented By: BILLIE Insulin Human Regular (Novolin-R Bolus From Bag) 5.1 units IV ONE ONE Stop: 07/12/23 02:31 Last Admin: 07/12/23 02:46 Dose: 5.1 units Documented By: BILLIE Co-signed By: JINA Miscellaneous Information (Patient's Allergy Info Needs Entered) 1 each N/A Q30M MANDI Stop: 08/10/23 23:39 Last Admin: 07/12/23 03:11 Dose: 1 each Documented By: NURIS Ondansetron HCl (Ondansetron Inj 2 Mg/Ml 2 Ml Vial) 4 mg IV NOW STA Stop: 07/12/23 00:46 Last Admin: 07/12/23 00:59 Dose: 4 mg Documented By: LAUREEN Coding Level of Care Code 35049 CRITICAL CARE 30-74M Diagnoses DKA (diabetic ketoacidosis) E11.10 Hypovolemia E86.1 High anion gap metabolic acidosis E87.29 ADD (attention deficit disorder) F98.8
[2023-07-12 03:48] LABS: Base Excess VBG -20.9 mEq/L; HCO3 VBG 7 mmol/L; Oxygen Saturation VBG 70.5 %; PCO2 VBG 23 mmHg (38-50); PO2 VBG 41 mmHg
[2023-07-12] MEDS ORDERED: PLASMA-LYTE A 1,000 ML IV ONE (04:09)
[2023-07-12 04:17] LABS: Amphetamines+Metham, Urine Neg (Neg); Barbiturates, Urine Neg (Neg); Benzodiazepine, Urine Neg (Neg); Cocaine, Urine Neg (Neg); MDMA (Ecstacy), Urine Neg (Neg); Marijuana, Urine Pos (Neg); Methadone, Urine Neg (Neg); Opiate, Urine Neg (Neg); Phencyclidine, Urine Neg (Neg)
[2023-07-12] MEDS ORDERED: PHARMACY GLYCEMIC MGMT CONSULT PRN (04:20)
[2023-07-12 04:21] LABS: BUN Creatinine Ratio 9.5 (10-20); Calcium 8.4 mg/dl (8.6-10.3); Magnesium 2.1 mg/dl (1.7-2.4); Potassium 3.6 mmol/L (3.5-5.1)
[2023-07-12] MEDS ORDERED: POTASSIUM CHLORIDE 20 MEQ/15 ML UDC PO STA (04:24)
[2023-07-12] MEDS: POTASSIUM CHLORIDE 20 MEQ in D5W AND LACTATED RINGERS 1,000 ML IV SCH ×2 (04:36→09:53)
[2023-07-12] MEDS ORDERED: PLASMA-LYTE A 1,000 ML IV SCH (05:15)
[2023-07-12] MEDS ORDERED: PENDING D5 1/2NS+20mEq KCL IVF SCH (06:00)
[2023-07-12] MEDS ORDERED: INSULIN ASPART PER UNIT CHARGE SC SCH (06:00)
[2023-07-12 07:14] LABS: Estimated Average Glucose 283 mg/dl; Hemoglobin A1C 11.5 % (4.5-5.6)
[2023-07-12] MEDS: INSULIN ASPART PER UNIT CHARGE SC SCH ×6 (08:09→23:55)
[2023-07-12 08:43] LABS: BUN Creatinine Ratio 8.5 (10-20); Calcium 8.4 mg/dl (8.6-10.3); Creatinine Clr Calc Pharmacy 103.3 ml/min; Est GFR (African American) 146.5 ml/min; Est GFR (Non-African American) 126.4 ml/min; Magnesium 2.1 mg/dl (1.7-2.4); Phosphorus 1.7 mg/dl (2.5-4.9); Potassium 3.7 mmol/L (3.5-5.1)
[2023-07-12] MEDS ORDERED: POTASSIUM PHOS 3 MMOL/1 ML INFUSION IV STA (08:59)
[2023-07-12] MEDS ORDERED: POTASSIUM PHOSPHATE 21 MMOL in SODIUM CHLORIDE 0.9% 500 ML IV ONE (09:15)
--- NOTE | 2023-07-12 09:26 | XRay Report ---
XR chest 1V portable HISTORY: 23 years-old Male f/u acute shortness of breath COMPARISON: None TECHNIQUE: AP view of the chest FINDINGS: Cardiomediastinal and hilar silhouettes appear normal. Numerous telemetry leads coiled over the left hemithorax. No pneumothorax, pleural effusion or airspace consolidation. Minimal mid thoracic dextros coliosis. The bones appear grossly intact. IMPRESSION: No acute process. ACT 112: Negative or not required by law. The above report was generated using voice recognition software. It may contain grammatical, syntax o r spelling errors. Electronically signed by: Zeus Rausch M.D. 07/12/2023 9:25 AM
[2023-07-12 12:11] LABS: Anion Gap 11 (3-11); BUN Creatinine Ratio 6.6 (10-20); Blood Urea Nitrogen 5 mg/dl (6-23); Calcium 8.3 mg/dl (8.6-10.3); Carbon Dioxide 17 mmol/L (21-32); Chloride 109 mmol/L (98-107); Creatinine Clr Calc Pharmacy 111.5 ml/min; Est GFR (African American) > 150.0 ml/min; Est GFR (Non-African American) 130.4 ml/min; Glucose 268 mg/dl (70-99(Fasting)); Magnesium 1.9 mg/dl (1.7-2.4); Phosphorus 2.4 mg/dl (2.5-4.9); Potassium 3.5 mmol/L (3.5-5.1); Sodium 137 mmol/L (136-145)
[2023-07-12] MEDS ORDERED: LANTUS PER UNIT CHARGE SC ONE (13:00)
--- NOTE | 2023-07-12 13:41 | Pharmacy Report ---
Pharmacy Glycemic Short Note 2 - Date of Service July 12, 2023 - Glycemic Short BSG Results (Last 24 hours): 07/12/23 07/12/23 07/12/23 01:03 02:23 03:25 Glucose 369 H* POC Glucose 323 H* 285 H 07/12/23 07/12/23 07/12/23 03:34 04:27 06:02 Glucose 256 H POC Glucose 206 H 209 H 07/12/23 07/12/23 07/12/23 06:59 07:50 08:01 Glucose 263 H POC Glucose 233 H 241 H 07/12/23 07/12/23 07/12/23 08:58 09:57 11:03 Glucose POC Glucose 272 H 266 H 250 H 07/12/23 07/12/23 07/12/23 11:38 12:06 12:54 Glucose 268 H POC Glucose 240 H 233 H OUTPATIENT ANTIDIABETIC REGIMEN: * n/A * A1C 11.5% 07/12/23 ASSESSMENT: * Patient presented in DKA, initial labs anion gap 31, HCO3 9. No reported history of diabetes, A1c does indicate diagnosis of diabetes. * Insulin infusion initiated, last BSG 233 mg/dL with dextrose containing fluids. Anion gap has now closed 11, and bicarb 17. Per party plan salesperson will start to transition to basal/bolus regimen. Will initiate based on weight 0.5-0.8 units/kg/day split between basal and bolus insulin. * Continue to overlap insulin infusion with lantus for minimum 2 hours * Dextrose containing fluids to be d/c when patient eats lunch. PLAN FOR INPATIENT GLYCEMIC CONTROL: * Hold outpatient oral diabetes medications * Insulin infusion currently at 1.5 units/hr to continue minimum 2 hours from lantus dose, with 2 consecutive BSGs in goal range. * Basal insulin * Lantus 12 units SQ x1 * Bolus insulin * NovoLog per scale ACHS or Q6hrs while NPO * Goal Range: Low 140 mg/dL - High 180 mg/dL * Correction Factor: 50 mg/dL/unit * Nutritional / Prandial insulin per carb ratio of 1 unit per 15 grams CHO consumed
[2023-07-12 16:32] LABS: Anion Gap 9 (3-11); Blood Urea Nitrogen 5 mg/dl (6-23); Calcium 8.3 mg/dl (8.6-10.3); Carbon Dioxide 19 mmol/L (21-32); Chloride 108 mmol/L (98-107); Creatinine Clr Calc Pharmacy 119.3 ml/min; Est GFR (African American) > 150.0 ml/min; Est GFR (Non-African American) 134.1 ml/min; Glucose 201 mg/dl (70-99(Fasting)); Magnesium 1.9 mg/dl (1.7-2.4); Phosphorus 2.7 mg/dl (2.5-4.9); Potassium 3.1 mmol/L (3.5-5.1); Sodium 136 mmol/L (136-145)
--- NOTE | 2023-07-12 18:12 | Hospitalist Progress Note ---
Date of Service July 12, 2023 Assessment & Plan (1) DKA (diabetic ketoacidosis): Plan: New onset type 1 diabetes with DKA Continue fluids/insulin managementimproving nicely Educated extensively, patient and father both expressed good understanding. Would like care of [facility] moving forward with the anticipation that they will be able to facilitate outpatient follow-up in their office. With his rate of improvement, hopefully home tomorrow. Plan DVT prophylaxisambulation Admission and Anticipated Discharge Date Admission Date: July 12, 2023 Subjective Feeling better. Overall improved. Dad at the bedside. Extensive discussion on diabetes, "why to care" and overall management. Patient/father would like him to have a local [place]. Review of Systems Review of Systems: All systems reviewed & are unremarkable except as noted in HPI & below Physical Exam Physical Exam: In general he is awake and alert pleasant no distress. HEENT normocephalic atraumatic mucous membranes moist. Breathing unlabored no accessory muscle use good effort. Skin shows no rashes no pallor or icterus. Neuro without focal deficits. Results & Data Results & Data Vital Signs (Past 12 Hours) Vital Signs Pulse Resp BP Pulse Ox O2 Del Method 07/12/23 18:05 115/73 07/12/23 18:05 87 16 98 07/12/23 18:00 87 18 96 07/12/23 17:51 83 07/12/23 17:05 117/71 07/12/23 17:05 94 H 16 96 07/12/23 17:00 92 H 19 96 07/12/23 16:05 118/80 07/12/23 16:05 81 14 97 07/12/23 16:00 83 17 96 07/12/23 15:06 90 20 97 07/12/23 15:06 122/70 07/12/23 15:00 78 17 98 07/12/23 14:05 114/78 07/12/23 14:05 85 15 99 07/12/23 14:00 81 14 99 07/12/23 13:05 80 17 97 07/12/23 13:05 122/84 07/12/23 13:00 85 8 L 96 07/12/23 12:05 101 H 13 97 07/12/23 12:05 134/75 07/12/23 12:00 83 17 97 07/12/23 11:05 79 17 97 07/12/23 11:05 127/80 07/12/23 11:00 85 15 97 07/12/23 10:06 81 14 96 07/12/23 10:06 131/78 07/12/23 10:00 82 17 98 07/12/23 09:06 125/78 07/12/23 09:06 82 18 98 07/12/23 09:00 90 16 98 07/12/23 08:05 120/86 07/12/23 08:05 79 17 99 07/12/23 08:00 87 14 99 07/12/23 08:00 Room Air 07/12/23 08:00 102 H 07/12/23 07:05 120/80 07/12/23 07:05 92 H 17 99 07/12/23 07:00 109 H 11 L 98 07/12/23 06:16 129/71 07/12/23 06:16 82 19 99 PG Care Time/CCT Total # of Minutes Spent Total Time Spent with Patient: Total time spent is greater than 50% in coordination of care (as documented) at patient's floor/unit and/or counseling patient: Coding Level of Care Code 29163 SUB INP/OBS CARE 3/50MIN Diagnoses DKA (diabetic ketoacidosis) E11.10
[2023-07-13] MEDS: INSULIN ASPART PER UNIT CHARGE SC SCH ×4 (04:00→17:35)
--- NOTE | 2023-07-13 06:17 | Billing Data ---
Date of Service July 13, 2023 Coding Level of Care Code 96047 INT INP/OBS CARE
[2023-07-13 08:03] LABS: Anion Gap 12 (3-11); BUN Creatinine Ratio 11.1 (10-20); Blood Urea Nitrogen 7 mg/dl (6-23); Calcium 9.1 mg/dl (8.6-10.3); Carbon Dioxide 24 mmol/L (21-32); Chloride 104 mmol/L (98-107); Creatinine Clr Calc Pharmacy 134.5 ml/min; Est GFR (African American) > 150.0 ml/min; Est GFR (Non-African American) 140.9 ml/min; Glucose 151 mg/dl (70-99(Fasting)); Potassium 2.8 mmol/L (3.5-5.1); Sodium 140 mmol/L (136-145)
[2023-07-13 08:18] LABS: Basophils # (auto) 0.03 K/uL (0.00-0.20); Basophils % (auto) 0.5 %; Eosinophils % (auto) 1.8 %; Hematocrit (blood only) 40.5 % (42.0-52.0); Immature Granulocytes # (auto) 0.01 K/uL (0.01-0.20); Immature Granulocytes % (auto) 0.2 %; Lymphocytes # (auto) 2.03 K/uL (1.20-3.40); Lymphocytes % (auto) 36.6 %; Mean Corpuscular Hemoglobin 29.7 pg (25.0-34.0); Mean Corpuscular Hgb Conc 34.6 g/dL (32.0-36.0); Mean Corpuscular Volume 85.8 fL (80.0-100.0); Mean Platelet Volume 9.4 fL (9.4-12.4); Monocytes # (auto) 0.48 K/uL (0.11-0.59); Monocytes % (auto) 8.7 %; Neutrophils # (auto) 2.89 K/uL (1.40-6.50); Neutrophils % (auto) 52.2 %; Platelet Count 156 K/uL (130-400); RDW Coefficient of Variation 14.2 % (11.5-14.5); RDW Standard Deviation 43.4 fL (36.4-46.3); Red Blood Count 4.72 M/uL (4.70-6.10); White Blood Count 5.54 K/ul (4.8-10.8)
[2023-07-13] MEDS ORDERED: LANTUS PER UNIT CHARGE SC SCH (09:00)
[2023-07-13] MEDS ORDERED: DEXTROAMPHETAMINE/AMPHETAMINE IR 10 MG TAB PO SCH (09:00)
[2023-07-13] MEDS ORDERED: FLUTICASONE PROPIONATE NA SPR 16 GM BTL NAE SCH (09:00)
[2023-07-13] MEDS: POTASSIUM CHLORIDE CRTAB 20 MEQ TABCR PO SCH ×2 (12:30→14:42)
--- NOTE | 2023-07-13 12:45 | Pharmacy Report ---
Pharmacy Glycemic Short Note 2 - Date of Service July 13, 2023 - Glycemic Short BSG Results (Last 24 hours): 07/12/23 07/12/23 07/12/23 12:54 14:04 15:56 Glucose 201 H POC Glucose 233 H 228 H 07/12/23 07/12/23 07/13/23 20:49 23:54 03:56 Glucose POC Glucose 197 H 135 H 111 H 07/13/23 07/13/23 07/13/23 07:20 07:53 12:05 Glucose 151 H POC Glucose 143 H 214 H OUTPATIENT ANTIDIABETIC REGIMEN: * n/A * A1C 11.5% 07/12/23 ASSESSMENT: 07/13 * Gil received 45 units of insulin yesterday (12 basal, 6 bolus, and ~27 units from the insulin drip) * Drip transition successful yesterday, was receiving dextrose fluids for most of the day contributing to increased insulin usage * Fasting BSG within goal range, no insulin given with overnight checks. Corrected at bedtime with 1 unit and 2 units carbohydrate coverage * Continue with Lantus at (~0.2 units/kg) as fasting BSG within goal range. * Lunchtime BSG slightly elevated, will continue current bolus parameters for simplicity with new DM diagnosis and monitor trends 07/12: * Patient presented in DKA, initial labs anion gap 31, HCO3 9. No reported history of diabetes, A1c does indicate diagnosis of diabetes. * Insulin infusion initiated, last BSG 233 mg/dL with dextrose containing fluids. Anion gap has now closed 11, and bicarb 17. Per plastic tool maker will start to transition to basal/bolus regimen. Will initiate based on weight 0.5-0.8 units/kg/day split between basal and bolus insulin. * Continue to overlap insulin infusion with lantus for minimum 2 hours * Dextrose containing fluids to be d/c when patient eats lunch. PLAN FOR INPATIENT GLYCEMIC CONTROL: * Hold outpatient oral diabetes medications * Basal insulin * Lantus 12 units SQ daily * Bolus insulin * NovoLog per scale ACHS or Q6hrs while NPO * Goal Range: Low 140 mg/dL - High 180 mg/dL * Correction Factor: 50 mg/dL/unit * Nutritional / Prandial insulin per carb ratio of 1 unit per 15 grams CHO consumed
[2023-07-13 16:51] LABS: Anion Gap 10 (3-11); Carbon Dioxide 26 mmol/L (21-32); Chloride 97 mmol/L (98-107); Potassium 3.4 mmol/L (3.5-5.1); Sodium 133 mmol/L (136-145)
[2023-07-13 16:55] LABS: BUN Creatinine Ratio 15.2 (10-20); Blood Urea Nitrogen 10 mg/dl (6-23); Creatinine Clr Calc Pharmacy 128.4 ml/min; Est GFR (African American) > 150.0 ml/min; Est GFR (Non-African American) 138.2 ml/min; Glucose 195 mg/dl (70-99(Fasting))
--- NOTE | 2023-07-13 17:26 | Discharge Summary ---
Date of Service July 13, 2023 Admission HPI Per Admitting Provider Pt is a 23 yo male with no significant PMH presenting to the ER d/t nausea/vomiting and abdominal pain. Pt explains that he has been feeling unwell over the last week or so. He has also noticed that his mouth/lips have been very dry, but he attributed this to sleeping with his mouth open. Pt began vomiting this morning. He vomited multiple times throughout the day which led him to seek care at [facility]. He was prescribed zofran PRN for nausea/vomiting and was told to go to the ER if he vomited again. He took a zofran and felt good for about 6 hrs and vomited again which prompted him to come to the ER. His friend notes that he was feeling SOB/breathing funny earlier when he was walking to and from the bathroom. He has no family hx of type 1 DM. His maternal GF had type 2 DM. He did recently start taking adderall PRN. He also uses flonase. No other daily medications. In the ER, pt received 2L NS, zofran 4 mg, and a bolus of insulin. He was started on an insulin drip. Admission Exam Per Admitting Provider Constitutional: ill appearing, no acute distress HEENT: normocephalic, no conjunctival injection CV: RRR, no murmur, no LE edema Respiratory: CTA bilaterally. No rhonchi, wheezes, or crackles. No increased work of breathing GI: soft, nondistended, nontender, + bowel sounds MSK: no gross deformities noted Skin: warm, dry, no rashes Neuro: alert, oriented, no FND noted Psych: mood and affect congruent Principal Diagnosis Type 1 Diabetes, new onset Discharge Exam In general he is awake and alert pleasant no distress. HEENT normocephalic atraumatic mucous membranes moist. Breathing unlabored no accessory muscle use good effort. Skin shows no rashes no pallor or icterus. Neuro without focal deficits. Discharge Data Allergies Allergy/AdvReac Type Severity Reaction Status Date / Time amoxicillin AdvReac Unknown Gastrointestinal Verified 07/12/23 02:32 Upset Consultations 07/12/23 03:01 Consult Teenage Babysitter Routine 07/12/23 03:18 ED Decision to Admit Stat Hospital Course (1) DKA (diabetic ketoacidosis): Pt is a 23 yo male with no significant PMH presenting to the ER d/t nausea/vomiting and abdominal pain. DKA - hemodynamically stable - lab work significant for K 3.4 at discharge - DC on 10U long acting, carb ratio 1:15, CF: 50 New onset type 1 DM - A1c 11.5 - Pt w/appt endocrine 07/24/23. - pt's PCP is in [place] and affiliated with [facility] Total Time Total Time Spent Total Time Spent (In Minutes): I spent 25 minutes seeing the patient, reviewing the EMR, and documenting. Discharge Plan Discharge Items Patient Disposition: Home - Self-Care Reason For Visit: DKA Discharge Diagnosis: Type 1 Diabetes, new onset Activity: Resume your previous activity Non-emergency contact: Primary Care Provider Call non-emergency contact if: you have any medication questions and your symptoms worsen Follow-up/Referrals: Shannan Jackson PA-C [Physician Stadium Manager] - 07/24/23 10:50 am Dennis Martinez DO [Resident] - Diet: Carb Count or DM1 Addtl Attending Provider Instructions: You were admitted to the hospital for diabetic ketoacidosis. You were treated with fluids and insulin. We also replaced your electrolytes, including potassium, while you were here. You met with the [facility] special education paraeducator who went over detailed instructions for how to treat your diabetes in the days following your hospitalization. In the days following your hospitalization the following may be helpful: 1) Medication: Take insulin injections as prescribed by your healthcare provider. Ensure you understand the dosage and timing. 2) Blood Sugar Monitoring: Monitor your blood sugar levels regularly using a glucose meter. Keep a log of your readings and report any significant changes to your healthcare team. 3) Diet: Follow a balanced diet with regular meal times. Focus on complex carbohydrates, lean proteins, and healthy fats. Limit sugary and processed foods. 4) Physical Activity: Engage in regular physical activity as recommended by your healthcare provider. Exercise helps regulate blood sugar levels and improves overall health. 5) Hydration: Drink plenty of water throughout the day to stay hydrated and help flush out excess glucose. 6) Hypoglycemia Awareness: Learn the signs and symptoms of low blood sugar (hypoglycemia) and how to treat it promptly with glucose tablets or a fast- acting carbohydrate. 7) Emergency Contacts: Keep emergency contact numbers handy, including your healthcare provider, nearest hospital, and emergency services. 8) Follow-Up Appointments: Schedule and attend regular follow-up appointments with your healthcare team to monitor your condition and make any necessary adjustments to your treatment plan. 9) Education: Continue to educate yourself about managing type 1 diabetes through reputable sources and diabetes education programs. 10) Support: Seek support from family, friends, and diabetes support groups to help you adjust to your new diagnosis and manage your condition effectively. A discharge summary will be sent to your primary care physician to ensure continuity of care. Please bring this discharge summary with you to your next office appointment so that your provider can review it at that time. Follow-up appointments: A follow up appointment primary care appointment has been established for you on July 27, 2023 at 2:25PM with Dr. Dennis Martinez at [facility]: [facility] in [place]. If you have any questions, please call . A follow up appointment has been scheduled with [facility] for July 24, 2023 at 10:50am. If you have any questions, please call . Keep all your follow-up appointments as already scheduled. If you cannot make an appointment, notify your provider. Medications: Your medication list has been reviewed and reconciled upon discharge to ensure accuracy and continuity of care. An updated list of all your medications is included with your hospital discharge paperwork. Please review this list closely, and make note of any changes. We sent a new medication called Semglee to your pharmacy. Take Semglee (10 units) every morning. We sent a new medication called Humalog Kwikpen to your pharmacy. Take Humalog as directed per carb coverage and blood sugar coverage. You were also provided with test strips, lancets, and insulin pen needles. If you have any issues filling these prescriptions, please call [phone] and ask to leave a message for Dr. Dennis Martinez. Take your medications as instructed; do not skip a dose of your medicines. Make sure all of your doctors know every medicine you are taking (including rbul-fyx-cxcmonw medicines, vitamins, and supplements). Call your primary care provider before taking any new medicines (including cxvf-aqb-vyymmmb medicines, vitamins, and supplements), because some of these may interact with your current medications, or may make your symptoms worse. Tell your primary care provider if you cannot afford your medications. CONTACT YOUR PRIMARY CARE PROVIDER if you experience any of the following: Increased thirst Increased urination Difficulty following your treatment plan, or difficulty taking medications CALL 911 OR GO TO THE EMERGENCY DEPARTMENT if you experience any of the following: Sudden, severe abdominal pain or nausea/vomiting Severe chest pain, or chest pain that radiates (moves) to your jaw or arm Sudden, severe shortness of breath or difficulty breathing Thank you for allowing us to participate in your care. Pending Studies at Discharge: No Stand-Alone Forms: [facility], Work/School Release Medications and DC Order Prescriptions: New insulin glargine-yfgn [Semglee(insulin glarg-yfgn)Pen] 100 unit/mL (3 mL) insulin pen 10 unit subcut QAM Qty: 15 1RF insulin lispro [Humalog KwikPen Insulin] 100 unit/mL insulin pen 1 sliding scale dose subcut USEASDIRECTD Qty: 15 1RF (DME) pen needle, diabetic [BD Sary 2nd Gen Pen Needle] 32 gauge x 5/32" needle See Rx Instructions .Route Qty: 100 0RF Rx Instructions: As directed (DME) OneTouch Verio test strips Strip See Rx Instructions .Route Qty: 100 0RF Rx Instructions: As directed (DME) lancets [OneTouch Delica Plus Lancet] 33 gauge misc See Rx Instructions .Route Qty: 100 1RF Rx Instructions: As directed Continued dextroamphetamine-amphetamine [Adderall] 10 mg Tablet 10 mg PO DAILY fluticasone propionate [Flonase] 50 mcg/actuation [place],Suspension 1 spray INTRANASAL DAILY Rx Instructions: administer into each nostril Discharge Orders: Discharge Order (Routine); Ordered 07/13/23 Ordered By: Dennis Maya/Other Patient Handouts: Types of Insulin, Type 1 Managing Ch, Type 1 Diabetes High BG Ch, Type 1 Diabetes Using Insulin Ch, Type 1 Diabetes, Type 1 Diabetes Ch Meals Snacks, Type 1 Diabetes Ch Sick Day Plan, Type 1 Diabetes: Getting Active Admission Data Admit Date/Time: 07/12/23 03:01 Attending Provider: Abraham Alcantara Admit Provider: Meghan Erickson Primary Care Provider: [place] Other Providers: Virgen Garcialo,Christopher D Supervising Physician Co-Signing Physician Notes I also saw the patient confirmed gonzales portions of the clinical history and physical examination. I spoke to the patient and his father in the room, reviewing diagnosis and treatment as well as outpatient follow-up. Patient seems to have a good grasp on both monitoring of glucose readings and administration of insulins. Discussed the risk of hypoglycemia; hypoglycemic awareness, etc. He has had pretty extensive diabetic education from the team here as well. Will arrange outpatient follow-up in our office in 2 weeks We will try to schedule something sooner if needed; and also see if and get our special education paraeducator to see him next week. Will place endocrinology referral for establishment (newly diagnosed insulin- dependent diabetic)
[2023-07-14 13:42] LABS: Marijuana Quant, GCMS Urine 44 ng/mL (<5)
== END 2023-07-13 18:04 | disposition home or self-care (01) | DRG 639 ==
LOC: ED 23:10 → SUATTDRO 07-12 03:01 → 1E 07-12 03:01 → 3N 07-12 21:30